=== PATIENT | male | born 1950 | race Caucasian/White ===

== ENCOUNTER 2020-09-04 19:04 | Emergency (ER) | payer OTHER ==
--- OUTSIDE RECORDS SUMMARY | 2020-09-04 19:09 | XMS REPORT | Continuity of Care Document ---
:1950 Author Organization [facility] t Address [address] [place] [address] Care Team Providers Name Role Phone Jax Hearn MD Primary Care Physician Dustin Wadsworth MD Attending Clinician Payers Payer Name Policy Type Policy Effective Date Expiration Date Sour ce Number AETNAAETNA [id number] 2019 [place] HMO,POS,EPO, 00:00:00 [place] [id number] 2018-Present HMO Problems Condition Condition Condition Status Onset Resolution Last Treating Co mments Source Name Details Category Date Date Treatment Clinician Date Postnasal Postnasal Problem Active [facility] drip drip for ENT Diplopia Diplopia Problem Active [facility] Polyp of Polyp of Problem Active [facility] nasal nasal for ENT cavity cavity Otalgia, Otalgia, Problem Active Cent[facility] bilateral bilateral for ENT Sinusitis Sinusitis Problem Active [facility] - Chronic - Chronic for ENT Nasal Nasal Problem Active Center airway airway for ENT obstructio obstructio n n Unspecifie Unspecifie Problem Active C enter d nasal d nasal for ENT polyp polyp Otitis Otitis Problem Active Center externa - externa - for ENT Acute Acute H60.339* H60.339* Eustachian Eustachian Problem Active C enter tube tube for ENT dysfunctio dysfunctio n, n, bilateral bilateral Allergic Allergic Problem Active Cente r rhinitis, rhinitis, for ENT seasonal seasonal Headache Headache Problem Active Cente r for ENT Chronic Chronic Problem Active Center maxillary maxillary for ENT sinusitis sinusitis Epidermal Epidermal Problem Active [facility] cyst cyst for ENT Cough Cough Problem Active Center for ENT Otitis Otitis Problem Active Center media - media - for ENT Chronic Chronic serous * serous * [place]achian Eustachian Problem Active C enter tube tube for ENT dysfunctio dysfunctio n * n * Obstructiv Obstructiv Problem Active C enter e sleep e sleep for ENT apnea apnea Acute Acute Problem Active Center pharyngiti pharyngiti fo r ENT s s Edema of Edema of Problem Active Cente r larynx larynx for ENT GERD GERD Problem Active Center for ENT Sinusitis Sinusitis Problem Active [facility] - Chronic - Chronic for ENT Chronic Chronic Problem Active Center maxillary maxillary for ENT sinusitis sinusitis Allergic Allergic Problem Active Cente r rhinitis rhinitis for EN T Swelling, Swelling, Problem Active [facility] mass, lump mass, lump fo r ENT in neck in neck Other Other Problem Active Center specified specified for ENT disorders disorders of of Eustachian Eustachian tube, tube, unspecifie unspecifie d ear d ear Chronic Chronic Problem Active Center laryngitis laryngitis fo r ENT (LPRD) (LPRD) Acute Acute Problem Active Center serous serous for ENT otitis otitis media, media, left ear left ear Conductive Conductive Problem Active C enter hearing hearing for ENT loss, loss, unilateral unilateral , left ear , left ear with with restricted restricted hearing on hearing on the the contralate contralate ral side ral side Allergies, Adverse Reactions, Alerts This patient has no known allergies or adverse reactions. Family History Family Member Diagnosis Comments Start Date Stop Date Source Natural father No Known Problems Lexx Yanez Natural mother No Known Problems Lexx Yanez Social History Social Habit Start Date Stop Date Quantity Comments Source Sex Assigned At [facility] Tobacco use and 2017-10-23 2017-10-[address] [facility] - exposure 00:00:00 00:00:00 [facility] Alcohol intake 2017-10-23 2017-10-23 Current [facility] es - 00:00:00 00:00:00 non-drinker of Medical nter alcohol (finding) Smoking Status Start Date Stop Date Source Never smoker [facility] Medications Ordered Filled Start Stop Current Ordering Indication Dosage Frequency Signature Comments Components Source Medication Medication Date Date Medication? Clinician (SIG) Name Name budesonide- 2020-0 Yes Take by Lexx terrileonidas formoteroL 6-04 mouth. [facility] (Symbicort) 08:49: st 160-4.5 13 mcg/actuati on inhaler itraconazol 2019-0 Yes itraconazo [place] e 6-04 le 100 mg [facility] (SPORANOX) 08:49: capsule st 100 mg 13 capsule montelukast 2019-0 Yes montelukas [place] (SINGULAIR) 604 t 10 mg Metho di 10 mg 08:49: tablet st tablet 13 omeprazole 2019-0 Yes omeprazole [place] (PriLOSEC) 04 40 mg [facility] 40 MG 08:49: capsule,de st capsule 13 layed release atorvastati 2019-0 Yes 20mg QD Take 20 mg Davon n (LIPITOR) -04 by mouth Meth melanie 20 mg 08:49: daily. st tablet 13 Default OP ins clopidogreL 2019-0 Yes 75mg QD Take 75 mg [place] (PLAVIX) 75 -04 by mouth Meth melanie mg tablet 08:49: daily. st 13 Omeprazole Omeprazole 2018-0 Yes Diogo Glover 1 capsule Center 3-08 for ENT 00:00: 00 budesonide- 2018-0 Yes 2{puff} Q.5D Inhale [address] formoterol 2-10 puffs by [facility] - (SYMBICORT) 15:00: mouth via M edical 160-4.5 05 inhaler 2 Center mcg/actuati (two) on inhaler times daily. OMEPRAZOLE 2017-0 Yes Take by [facility] ORAL 2-10 mouth. [facility] - 15:00: Medical 05 Center montelukast 2017-0 Yes 10mg QD Take [address] (SINGULAIR) 2-10 by mouth Luke s - 10 mg 15:00: nightly. Medical tablet 05 Center Vital Signs Vital Name Observation Time Observation Value Comments Source Body height 2020-02-15 08:39:00 182.9 cm Davon Yanez Body weight 2020-02-15 08:39:00 79.379 kg Davon Yanez BMI 2020-02-15 08:39:00 23.73 kg/m2 Davon Yanez Procedures Procedure Date / Time Performing Clinician Source Performed NE ARTHROCENTESIS 2020-02-29 09:45:00 Amish Wadsworth ethodist ASPIR&/INJ MAJOR JT/BURSA W/O US NE ARTHROCENTESIS 2020-02-15 09:45:00 Amish Wadsworth ethodist ASPIR&/INJ MAJOR JT/BURSA W/O US XR SHOULDER 2+ VW RIGHT 2020-02-15 08:50:25 Amish Wadsworth [place] Plan of Care Planned Activity Planned Date Details Comments Source Future Scheduled 2020-05-14 INFLUENZA VACCINE (#1) [facility] Test 00:00:00 [code = INFLUENZA Medical Ce nter VACCINE (#1)] Future Scheduled 2020-04-13 INFLU[place]ZA VACCINE [place] [facility] Test 00:00:00 [code = INFLUENZA VACCINE] Future Scheduled 2014 65+ PNEUMOCOCCAL [place] [facility] Test 00:00:00 VACCINE (1 of 1 - PPSV23) [code = 65+ PNEUMOCOCCAL VACCINE (1 of 1 - PPSV23)] Future Scheduled 2014 PNEUMOCOCCAL 65+ Y[facility] - Test 00:00:00 (1 of 1 - Medical Center [id number] PCV13) [code = PNEUMOCOCCAL 65+ YRS (1 of 1 - [id number] PCV13)] Future Scheduled 1999 [place]OSCOPY SCREENING [place] [facility] Test 00:00:00 [code = COLONOSCOPY SCREENING] Future Scheduled 1999 SHINGLES VACCINES (#1) [place] [facility] Test 00:00:00 [code = SHINGLES VACCINES (#1)] Future Scheduled 1965 COVID-19 VACCINE (#1) [place] [facility] Test 00:00:00 [code = COVID-19 VACCINE (#1)] Future Scheduled [address] [facility] - Test 00:00:00 malignant neoplasm of Medica l Center colon (procedure) [code = 680575661] Encounters Start End Encounter Admission Attending Care Care Encounter Source Date/Time Date/Time Type Type Clinicians Facility Department ID 2020-03-14 2020-03-14 Outpatient [facility] [id number] 274 [place] 00:00:00 00:00:00 AMISH [address] 2020-02-29 2020-02-29 Outpatient [facility] [id number] [place] 00:00:00 00:00:00 AMISH 384 Method i 2020-02-15 2020-02-15 Outpatient [facility] [id number] 499 [place] 00:00:00 00:00:00 042 Method i 2020-02-15 2020-02-15 Outpatient BHARGAVI [facility] [id number] [place] 00:00:00 00:00:00 AMISH 745 Method i 2018-11-18 2018-11-18 Outpatient [facility] [id number] Center 10:59:00 10:59:00 [facility] 2018-08-03 2018-08-03 Outpatient [facility] [id number] Center 14:00:00 14:00:00 [facility] 2018-07-12 2018-07-12 Outpatient [facility] [id number] Center 10:30:00 10:30:00 [facility] 2018 2018 Outpatient [facility] [id number] Center 13:05:00 13:05:00 [facility] 2018-04-13 2018-04-13 Outpatient [facility] [id number] Center 09:26:00 09:26:00 [facility] 2018-02-23 2018-02-23 Outpatient [facility] [id number] Center 13:37:00 13:37:00 [facility] Results Test Description Test Time Test Comments Results Result Sour e Comments Large Joint 2020-02-12 [facility] 8 02/29/2020 2:03 M ethodist shoulder, R 09:45:00 PMLarge Joint subacromial Arthrocentesis: bursa shoulder, R subacromial bursaConsent given by: patientSupporting DocumentationIndicati ons: pain Procedure DetailsUltrasound guided: noPlatelet Rich Plasma Used: no PRP UsedLocation: shoulder - R subacromial bursa Right side:Needle size: 25 GApproach: anteriorRight shoulder medications administered: 1 mL lidocaine 10 mg/mL (1 %); 6 mg betamethasone acetate & sodium phosphate 6 mg/mLPatient tolerance: patient tolerated the procedure well with no immediate complications Large Joint Amish Wadsworth MD Lexx stoleonidas Arthrocentesis: 4 02/15/2020 1:52 Me thodist shoulder, R 09:45:00 PMLarge Joint subacromial Arthrocentesis: bursa shoulder, R subacromial bursaConsent given by: patientSupporting DocumentationIndicati ons: pain Procedure DetailsUltrasound guided: noPlatelet Rich Plasma Used: no PRP UsedLocation: shoulder - R subacromial bursa Right side:Needle size: 25 GApproach: anteriorRight shoulder medications administered: 1 mL lidocaine 10 mg/mL (1 %); 6 mg betamethasone acetate & sodium phosphate 6 mg/mLPatient tolerance: patient tolerated the procedure well with no immediate complications FL, ESOPHAGUS 2018-06-15 Reason for FINAL REPORT PATIENT 1 Exam:->chronic ID: [id number] EXAM: 14:36:00 laryngitis Esophagram was performed with sodium carbonate and barium. INDICATION: 68-year-old man with chronic laryngitis. COMPARISON: None. FINDINGS:Swallow: The swallowing mechanism was grossly normal. The esophagus was normally distensible and the mucosa was normal in appearance. Esophageal motility was within normal limits. Gastroesophageal junction: No evidence of hiatal hernia. Reflux: No evidence of reflux. The visualized portions of the stomach and proximal small bowel are unremarkable. Fluoroscopy time: 61 secondsNumber of images: 18 IMPRESSION:Normal esophagram. Signed: Etta [place]os MDReport Verified Date/Time: 07/13/2018 14:36:23 Reading Location: [address] Radiology Reading Room , CHEST, 2 2017-10-14 Reason for FINAL REPORT PATIENT VIEWS 0 exam:->COUGHSh ID: [id number] 15:51:00 ould this be TECHNIQUE: 2 views of performed at the chest. the COMPARISON: 12/12/2011 bedside?->No FINDINGS: The cardiac silhouette is within normal limits. Mediastinum is unremarkable. Lungs appear hyperexpanded, otherwise clear. Osseous structures appear unremarkable. Soft tissues appear unremarkable. IMPRESSION: No acute cardiopulmonary disease. Signed: Gerry Garciaort Verified Date/Time: 10/23/2017 15:51:04 Reading Location: [facility] B1 C013T Transitional Reading Room
--- OUTSIDE RECORDS SUMMARY | 2020-09-04 19:09 | XMS REPORT | Clinical Summary ---
:1950 Author Organization [facility] Address [address] [place] [address] Care Team Providers Name Role Phone Ric Hearn MD Primary Care Provider Allergies No Known Active Allergies Medications Medication Sig Dispensed Refills Start Date End Date Status budesonide-formotero Take by mouth. 0 Active L (Symbicort) 160-4.5 mcg/actuation inhaler itraconazole itraconazole 100 mg 0 Active (SPORANOX) 100 mg capsule capsule montelukast montelukast 10 mg 0 Active (SINGULAIR) 10 mg tablet tablet omeprazole omeprazole 40 mg 0 Ac tive (PriLOSEC) 40 MG capsule,delayed capsule release atorvastatin Take 20 mg by mouth 0 Active (LIPITOR) 20 mg daily. Default OP tablet ins clopidogreL (PLAVIX) Take 75 mg by mouth 0 Active 75 mg tablet daily. Active Problems No known active problems Encounters Date Type Specialty Care Team Description 03/14/2020 Office Visit Orthopedic Surgery Clif Wadsworth Rota tor cuff tendinitis, right (Primary Dx); Acute pain of r ight shoulder 03/14/2020 Travel 02/29/2020 Office Visit Orthopedic Surgery Clif Wadsworth Acut e pain of right shoulder (Primary Dx); Rotator cuff lev gaxiolainimeek, right 02/29/2020 Travel 02/15/2020 Office Visit Orthopedic Surgery Clif Wadsworth Acut e pain of right shoulder (Primary Dx); Rotator kali aguilar, right 02/15/2020 Travel 02/09/2020 Travel after 09/04/2019 Surgical History Surgery Date Site/Laterality Comments SINUS SURGERY HERNIA REPAIR Medical History Medical History Date Comments COPD (chronic obstructive pulmonary disease) (HCC) Hyperlipidemia GERD (gastroesophageal reflux disease) Family History Medical History Relation Name Comments No Known Problems Father No Known Problems Mother Relation Name Status Comments Father Mother Social History Tobacco Use Types Packs/Day Years Used Date Never Smoker Sex Assigned at Date Recorded Not on file Last Filed Vital Signs Vital Sign Reading Time Taken Comments Blood Pressure - - Pulse - - Temperature - - Respiratory Rate - - Oxygen Saturation - - Inhaled Oxygen Concentration - - Weight 79.4 kg (175 lb) 02/15/2020 8:39 AM CDT Height 182.9 cm (6') 02/15/2020 8:39 AM CDT Body Mass Index 23.73 02/15/2020 8:39 AM CDT Plan of Treatment Health Maintenance Due Date Last Done Comments COVID-19 VACCINE (#1) 1965 COLONOSCOPY SCREENING 1999 SHINGLES VACCINES (#1) 1999 65+ PNEUMOCOCCAL VACCINE (1 of 1 - PPSV23) 2014 INFLUENZA VACCINE 04/13/2020 Procedures Procedure Name Priority Date/Time Associated Comments Diagnosis VT ARTHROCENTESIS Routine 02/29/2020 9:45 Acute pain of Resul ts for this ASPIR&/INJ MAJOR AM CDT right shoulder procedure are in JT/BURSA W/O US Rotator cuff the results tendinitis, right section. VT ARTHROCENTESIS Routine 02/15/2020 9:45 Acute pain of Resul ts for this ASPIR&/INJ MAJOR AM CDT right shoulder procedure are in JT/BURSA W/O US Rotator cuff the results tendinitis, right section. XR SHOULDER 2+ VW RIGHT Routine 02/15/2020 8:50 Acute pain of Results for this AM CDT right shoulder procedure are in the results section. after 09/04/2019 Results Large Joint Arthrocentesis: shoulder, R subacromial bursa (02/29/2020 9:45 AM CDT) Narrative Performed At Clif Wadsworth MD 02/29/2020 2 :03 PM Large Joint Arthrocentesis: shoulder, R subacromial bursa Consent given by: patient Supporting Documentation Indications: pain Procedure Details Ultrasound guided: no Platelet Rich Plasma Used: no PRP Used Location: shoulder - R subacromial bursa Right side: Needle size: 25 G Approach: anterior Right shoulder medications administered: 1 mL lidocain e 10 mg/mL (1 %); 6 mg betamethasone acetate & sodium phosph ate 6 mg/mL Patient tolerance: patient tolerated the procedure wel l with no immediate complications Large Joint Arthrocentesis: shoulder, R subacromial bursa (02/15/2020 9:45 AM CDT) Narrative Performed At Clif Wadsworth MD 02/15/2020 1: 52 PM Large Joint Arthrocentesis: shoulder, R subacromial bursa Consent given by: patient Supporting Documentation Indications: pain Procedure Details Ultrasound guided: no Platelet Rich Plasma Used: no PRP Used Location: shoulder - R subacromial bursa Right side: Needle size: 25 G Approach: anterior Right shoulder medications administered: 1 mL lidocain e 10 mg/mL (1 %); 6 mg betamethasone acetate & sodium phosph ate 6 mg/mL Patient tolerance: patient tolerated the procedure wel l with no immediate complications XR Shoulder 2+ Vw Right (02/15/2020 8:50 AM CDT) Specimen Narrative Performed At This result has an attachment that is no t available. Internal and external rotation AP and outlet view x-rays of the right [facility] shoulder are normal. There is no joint line narrowin g, no spurring and no soft tissue calcification. 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
--- OUTSIDE RECORDS SUMMARY | 2020-09-04 19:09 | XMS REPORT | Clinical Summary ---
:1950 Author Organization [facility] Address [address] [place] [address] Care Team Providers Name Role Phone Jax Hearn Primary Care Provider Allergies No Known Allergies Medications Medication Sig Dispensed Refills Start Date End Date Status budesonide-formoterol Inhale 2 puffs by 0 Active (SYMBICORT) 160-4.5 mouth via inhaler mcg/actuation inhaler 2 (two) times daily. OMEPRAZOLE ORAL Take by mouth. 0 Active montelukast Take 10 mg by 0 Acti ve (SINGULAIR) 10 mg mouth nightly. tablet Active Problems Not on file Social History Tobacco Use Types Packs/Day Years Used Date Never Smoker Smokeless Tobacco: Never Used Tobacco Cessation: Counseling Given: No Alcohol Use Drinks/Week oz/Week Comments No Sex Assigned at Date Recorded Not on file Last Filed Vital Signs Not on file Plan of Treatment Health Maintenance Due Date Last Done Comments COLON CANCER SCREENING COLONOSCOPY 1950 PNEUMOCOCCAL 65+ YRS (1 of 1 - [id number] PCV13) 2014 INFLUENZA VACCINE (#1) 2020 Results Not on fileafter 09/04/2019 Insurance Payer Benefit Plan / Subscriber ID Effective Dates Phone Addre ss Type Group PHCS - PRIVATE [employer]CS PPO/POS [id number] 2017-Present PPO [facility]
[2020-09-04] MEDS ORDERED: ASPIRIN 81 MG CHEWABLE TABLET ONE (22:05)
[2020-09-04] MEDS ORDERED: NA CHLORIDE 0.9% 1,000 ML ONE (22:06)
[2020-09-04] MEDS ORDERED: FENTANYL CITR 100 MCG/2 ML ONE (22:06)
[2020-09-04] MEDS ORDERED: CLOPIDOGREL 75 MG TABLET ONE (22:06)
[2020-09-04 22:35] LABS: Absolute Lymphocytes (CBC) 0.5 K/uL (0.7-4.9); Basophils % 0.4 % (0-1.3); Hematocrit 35.2 % (39.6-49.0); Lymphocytes % 13.1 % (15.3-44.8); MPV 7.8 fL (7.6-11.3); RBC Red Blood Cell Count 3.85 M/uL (4.33-5.43)
[2020-09-04 22:43] LABS: BUN Blood Urea Nitrogen 15 mg/dL (7-18); Bicarbonate 28 mmol/L (21-32); Glucose Level 107 mg/dL (74-106); Potassium 3.4 mmol/L (3.5-5.1); Sodium Level 142 mmol/L (136-145)
--- NOTE | 2020-09-04 22:48 | ER ---
Nurse's Notes [facility] Name: Andrea Weiss Age: 70 yrs Sex: Male : 1950 Arrival Date: 09/04/2020 Time: 19:09 Bed 19 Private MD: Diagnosis: SARS-associated coronavirus as the cause of diseases classified elsewhere;Fever, unspecified Presentation: 09/04 20:03 Chief complaint: Patient states: Covid positive 08/27. Fever and SOB now. Had N/V/D, ll1 but now has resolved. States he thought he was getting better, but fever spiked again today. 20:05 Coronavirus screen: Client denies travel out of the [place] in the last 14 days. cough ll1 unrelated to allergies, fatigue, fever, Client presents with at least one sign or symptom that may indicate coronavirus-19. Standard/surgical mask placed on the client. Client reports previous positive COVID test result. Ebola Screen: Patient denies travel to an Ebola-affected area in the 21 days before illness onset. Initial Sepsis Screen: Does the patient meet any 2 criteria? No. Patient's initial sepsis screen is negative. Does the patient have a suspected source of infection? Yes: Productive cough/pneumonia. Risk Assessment: Do you want to hurt yourself or someone else? Patient reports no desire to harm self or others. Onset of symptoms was August 26, 2020. 20:05 Method Of Arrival: Ambulatory ll1 20:05 Acuity: ANGELIC 3 ll1 Historical: - Allergies: 20:03 No Known Allergies; ll1 - PMHx: 20:03 Asthma; ll1 - PSHx: 20:03 sinus surgeries x 4; ll1 - Immunization history:: Flu vaccine is up to date. - Social history:: Smoking status: Patient denies any tobacco usage or history of. Screenin:20 Abuse screen: Denies threats or abuse. Nutritional screening: No deficits noted. ll2 Tuberculosis screening: No symptoms or risk factors identified. Fall Risk None identified. Assessment: 19:20 General: Appears in no apparent distress. Behavior is calm, cooperative, appropriate ll2 for age. Pain: Denies pain. Neuro: Level of Consciousness is awake, alert, obeys commands, Oriented to person, place, time, situation. Cardiovascular: Patient's skin is warm and dry. Respiratory: Airway is patent Respiratory effort is even, unlabored, Respiratory pattern is regular, symmetrical, Breath sounds are clear. GI: No signs and/or symptoms were reported involving the gastrointestinal system. : No signs and/or symptoms were reported regarding the genitourinary system. EENT: No signs and/or symptoms were reported regarding the EENT system. Derm: Skin is intact, Skin is dry, Skin is pink, warm \T\ dry. Musculoskeletal: Circulation, motion, and sensation intact. Range of motion:. 20:30 Reassessment: Patient and/or family updated on plan of care and expected duration. Pain ll2 level reassessed. Patient is alert, oriented x 3, equal unlabored respirations, skin warm/dry/pink. son at bedside, pt denies pain at this time. 21:30 Reassessment: Patient and/or family updated on plan of care and expected duration. Pain ll2 level reassessed. Patient is alert, oriented x 3, equal unlabored respirations, skin warm/dry/pink. pt resting comfortably in bed. 22:30 Reassessment: Patient and/or family updated on plan of care and expected duration. Pain ll2 level reassessed. Patient is alert, oriented x 3, equal unlabored respirations, skin warm/dry/pink. Vital Signs: 19:22 BP 144 / 79; Pulse 75; Resp 18; Temp 98; Pulse Ox 99% on R/A; ll2 20:05 BP 115 / 74; Pulse 60; Resp 18; Temp 98.0; Pulse Ox 100% ; Weight 79.38 kg; Height 6 ll1 ft. 0 in. (182.88 cm); Pain 0/10; 20:15 BP 134 / 87; Pulse 75; Resp 16; Pulse Ox 99% on R/A; ll2 21:15 BP 110 / 75; Pulse 55; Resp 18; Pulse Ox 99% on R/A; ll2 22:15 BP 148 / 86; Pulse 50; Resp 17; Pulse Ox 99% on R/A; ll2 23:15 BP 137 / 89; Pulse 50; Resp 18; Temp 98; Pulse Ox 100% on R/A; ll2 20:05 Body Mass Index 23.73 (79.38 kg, 182.88 cm) ll1 ED Course: 19:09 Patient arrived in ED. rg4 19:20 Patient has correct armband on for positive identification. Placed in gown. Bed in low ll2 position. Call light in reach. Side rails up X 1. Adult w/ patient. Pulse ox on. NIBP on. 19:20 No provider procedures requiring assistance completed. Inserted saline lock: 22 gauge ll2 in right antecubital area, using aseptic technique. Blood collected. 20:02 Arm band placed on Patient placed in an exam room, on a stretcher. ll1 20:06 Triage completed. ll1 20:44 Kenzie Palmer FNP-C is PHCP. snw 20:44 Reba Contreras MD is Attending Physician. snw 20:53 Radha Augustin, RO is Primary Nurse. ll2 21:50 Chest Single View XRAY In Process Unspecified. EDMS 23:16 IV discontinued, intact, bleeding controlled, No redness/swelling at site. Pressure ll2 dressing applied. Administered Medications: 22:00 Drug: Aspirin Chewable Tablet 81 mg Route: PO; ll2 23:17 Follow up: Response: No adverse reaction ll2 22:00 Drug: PlaVIX 75 mg Route: PO; ll2 23:17 Follow up: Response: No adverse reaction ll2 22:15 Drug: NS 0.9% 1000 ml Route: IV; Rate: 1 bolus; Site: right antecubital; ll2 23:17 Follow up: Response: No adverse reaction; IV Status: Completed infusion; IV Intake: ll2 1000ml 22:20 Drug: fentaNYL (PF) 25 mcg Route: IVP; Site: right antecubital; ll2 23:17 Follow up: Response: No adverse reaction ll2 Intake: 23:17 IV: 1000ml; Total: 1000ml. ll2 Outcome: 22:48 Discharge ordered by . snw 23:16 Discharged to home ambulatory. ll2 23:16 Condition: stable 23:16 Discharge instructions given to patient, Instructed on discharge instructions, follow up and referral plans. Demonstrated understanding of instructions, follow-up care. 23:17 Patient left the ED. ll2 Signatures: Dispatcher [employer] EDMS Kenzie Palmer FNP-C FITTING ROOM OPERATOR-Csnw Lorelei Titus rg4 Radha Augustin, RN RN ll2 Scarlett Marin RN RN ll1
--- NOTE | 2020-09-04 22:48 | EDPHYS ---
Physician Documentation [facility] Name: Andrea Weiss Age: 70 yrs Sex: Male : 1950 Arrival Date: 09/04/2020 Time: 19:09 Bed 19 Private MD: ED Physician Reba Contreras HPI: 09/04 21:32 This 70 yrs old Male presents to ER via Ambulatory with complaints of Fever, snw COVID+. 21:32 The patient reports fever, that was measured at 102 degrees Fahrenheit. Onset: The snw symptoms/episode began/occurred recurred this am. Associated signs and symptoms: Pertinent positives: cough, decreased appetite, fatigue, malaise, weight loss. Severity of symptoms: At their worst the symptoms were moderate. The patient has experienced a previous episode. The patient has been recently seen by a physician: with similar presenting complaints, dx with CoVid on the , felt a little better and then today awoke with fever to 102. SpO2 100% on Room air. Historical: - Allergies: 20:03 No Known Allergies; ll1 - PMHx: 20:03 Asthma; ll1 - PSHx: 20:03 sinus surgeries x 4; ll1 - Immunization history:: Flu vaccine is up to date. - Social history:: Smoking status: Patient denies any tobacco usage or history of. ROS: 21:31 Eyes: Negative for injury, pain, redness, and discharge, ENT: Negative for injury, snw pain, and discharge, Neck: Negative for injury, pain, and swelling, Cardiovascular: Negative for chest pain, palpitations, and edema, Abdomen/GI: Negative for abdominal pain, nausea, vomiting, diarrhea, and constipation, Back: Negative for injury and pain, : Negative for injury, bleeding, discharge, and swelling, MS/Extremity: Negative for injury and deformity, Skin: Negative for injury, rash, and discoloration, Neuro: Negative for headache, weakness, numbness, tingling, and seizure. 21:31 Constitutional: Positive for body aches, fatigue, fever, malaise, poor PO intake, weight loss. 21:31 Respiratory: Positive for cough, shortness of breath, on exertion. Exam: 21:30 Constitutional: This is a well developed, well nourished patient who is awake, alert, snw and in no acute distress. listless Head/Face: Normocephalic, atraumatic. Eyes: Pupils equal round and reactive to light, extra-ocular motions intact. Lids and lashes normal. Conjunctiva and sclera are non-icteric and not injected. Cornea within normal limits. Periorbital areas with no swelling, redness, or edema. ENT: Nares patent. No nasal discharge, no septal abnormalities noted. Tympanic membranes are normal and external auditory canals are clear. Oropharynx with no redness, swelling, or masses, exudates, or evidence of obstruction, uvula midline. Mucous membranes moist. Neck: Trachea midline, no thyromegaly or masses palpated, and no cervical lymphadenopathy. Supple, full range of motion without nuchal rigidity, or vertebral point tenderness. No Meningismus. Chest/axilla: Normal chest wall appearance and motion. Nontender with no deformity. No lesions are appreciated. Cardiovascular: Regular rate and rhythm with a normal S1 and S2. No gallops, murmurs, or rubs. Normal PMI, no JVD. No pulse deficits. 21:30 Abdomen/GI: Soft, non-tender, with normal bowel sounds. No distension or tympany. No guarding or rebound. No evidence of tenderness throughout. Back: No spinal tenderness. No costovertebral tenderness. Full range of motion. Skin: Warm, dry with normal turgor. Normal color with no rashes, no lesions, and no evidence of cellulitis. MS/ Extremity: Pulses equal, no cyanosis. Neurovascular intact. Full, normal range of motion. Neuro: Awake and alert, GCS 15, oriented to person, place, time, and situation. Cranial nerves II-XII grossly intact. Motor strength 5/5 in all extremities. Sensory grossly intact. Cerebellar exam normal. Normal gait. Psych: Awake, alert, with orientation to person, place and time. Behavior, mood, and affect are within normal limits. 21:30 Respiratory: the patient does not display signs of respiratory distress, Respirations: shallow respirations, Breath sounds: are clear throughout. Vital Signs: 19:22 BP 144 / 79; Pulse 75; Resp 18; Temp 98; Pulse Ox 99% on R/A; ll2 20:05 BP 115 / 74; Pulse 60; Resp 18; Temp 98.0; Pulse Ox 100% ; Weight 79.38 kg; Height 6 ll1 ft. 0 in. (182.88 cm); Pain 0/10; 20:15 BP 134 / 87; Pulse 75; Resp 16; Pulse Ox 99% on R/A; ll2 21:15 BP 110 / 75; Pulse 55; Resp 18; Pulse Ox 99% on R/A; ll2 22:15 BP 148 / 86; Pulse 50; Resp 17; Pulse Ox 99% on R/A; ll2 23:15 BP 137 / 89; Pulse 50; Resp 18; Temp 98; Pulse Ox 100% on R/A; ll2 20:05 Body Mass Index 23.73 (79.38 kg, 182.88 cm) ll1 MDM: 20:46 Patient medically screened. snw 22:51 Data reviewed: vital signs, nurses notes. Data interpreted: Pulse oximetry: on room air snw is 100 %. Interpretation: normal. Counseling: I had a detailed discussion with the patient and/or guardian regarding: the historical points, exam findings, and any diagnostic results supporting the discharge/admit diagnosis, lab results, radiology results, the need for outpatient follow up, to return to the emergency department if symptoms worsen or persist or if there are any questions or concerns that arise at home. Special discussion: Based on the history and exam findings, there is no indication for further emergent testing or inpatient evaluation. I discussed with the patient/guardian the need to see the primary care provider for further evaluation of the symptoms. 09/04 21:28 Order name: CBC with Diff; Complete Time: 22:38 snw 09/04 21:28 Order name: Chem 7; Complete Time: 22:46 snw 09/04 21:28 Order name: Chest Single View XRAY snw Administered Medications: 22:00 Drug: Aspirin Chewable Tablet 81 mg Route: PO; ll2 23:17 Follow up: Response: No adverse reaction ll2 22:00 Drug: PlaVIX 75 mg Route: PO; ll2 23:17 Follow up: Response: No adverse reaction ll2 22:15 Drug: NS 0.9% 1000 ml Route: IV; Rate: 1 bolus; Site: right antecubital; ll2 23:17 Follow up: Response: No adverse reaction; IV Status: Completed infusion; IV Intake: ll2 1000ml 22:20 Drug: fentaNYL (PF) 25 mcg Route: IVP; Site: right antecubital; ll2 23:17 Follow up: Response: No adverse reaction ll2 Disposition: 23:29 Co-signature as Attending Physician, Reba Contreras MD. ma2 Disposition: 09/04/20 22:48 Discharged to Home. Impression: SARS-associated coronavirus as the cause of diseases classified elsewhere, Fever, unspecified. - Condition is Stable. - Discharge Instructions: Fever, Adult, Viral Respiratory Infection, Aspirin and Your Heart, Rehydration, Elderly. - Medication Reconciliation Form, Thank You Letter, Antibiotic Education, Prescription Opioid Use form. - Follow up: Emergency Department; When: As needed; Reason: Worsening of condition. Follow up: Private Physician; When: 2 - 3 days; Reason: Recheck today's complaints, Continuance of care, Re-evaluation by your physician. Signatures: Dispatcher [employer] EDMS Kenzie Palmer, [employer] FIRST ASSISTANT-Reba Yates MD MD ma2 Radha Augustin RN RN ll2 Scarlett Marin RN RN ll1 Corrections: (The following items were deleted from the chart) 23:17 22:48 09/04/2020 22:48 Discharged to Home. Impression: SARS-associated coronavirus as ll2 the cause of diseases classified elsewhere; Fever, unspecified. Condition is Stable. Forms are Medication Reconciliation Form, Thank You Letter, Antibiotic Education, Prescription Opioid Use. Follow up: Emergency Department; When: As needed; Reason: Worsening of condition. Follow up: Private Physician; When: 2 - 3 days; Reason: Recheck today's complaints, Continuance of care, Re-evaluation by your physician. snw
[2020-09-04 23:28] VITALS: BP 137/89; TEMP 98; O2SAT 100
--- NOTE | 2020-09-05 08:32 | RAD REPORT ---
EXAM DESCRIPTION: Sigrid Single View09/04/2020 9:50 pm CLINICAL HISTORY: Cough COMPARISON: 2016 FINDINGS: The lungs are mildly hazy. Heart is normal size. Lungs are hyperaerated IMPRESSION: The lungs are mildly hazy. This probably is secondary to overlying soft tissue. Mild inf iltrates can also have this appearance. If clinically indicated further evaluation with PA and latera l chest series could be obtained
== END 2020-09-04 23:17 | disposition home or self-care (01) ==
LOC: ER 19:04
DX: U07.1 COVID-19 (principal); R05 Cough
CPT/HCPCS: 96361; 85025; 80048; 36415; 71045; 96374; 99284; J3010; J7030

== ENCOUNTER 2022-02-10 07:05 | Day surgery (SDC) | payer BC ==
--- NOTE | 2022-01-30 15:31 | RAD REPORT ---
EXAM DESCRIPTION: RAD - Chest Pa And Lat (2 Views) - 01/30/2022 3:20 pm CLINICAL HISTORY: Pre op pending urolift COMPARISON: Portable chest 09/04/2020, two view chest 08/10/2016 TECHNIQUE: Frontal and lateral views of the chest were obtained. FINDINGS: The lungs are fibrotic with flattened diaphragm and increased retrosternal space. The fibr otic lung pattern is not clearly different from comparison. No superimposed failure, infiltrate or ma ss lesions seen. Trachea is midline. Heart size is normal and central vasculature is within normal limits. No pleur al effusion or pneumothorax seen. No acute bony finding noted. No aortic abnormality. IMPRESSION: COPD pattern not substantially different from comparison imaging. No acute cardiopulmonary finding.
[2022-01-30 15:34] LABS: Absolute Lymphocytes (CBC) 0.8 K/uL (0.7-4.9); MPV 7.9 fL (7.6-11.3); RBC Red Blood Cell Count 3.86 M/uL (4.33-5.43)
[2022-01-30 15:35] LABS: Protime INR 1.08
[2022-01-30 15:46] LABS: Potassium 4.4 mmol/L (3.5-5.1)
--- NOTE | 2022-02-02 11:31 | EKG ---
Test Date: 2022-01-30 Test Time: 15:00:43 Auto Repair Technician: JIN MEASUREMENT RESULTS: Intervals: Rate: 64 WI: 142 QRSD: 88 QT: 408 QTc: 420 Lynn: P: 48 WI: 142 QRS: 56 T: 54 INTERPRETIVE STATEMENTS: Normal sinus rhythm Normal ECG Compared to ECG 12/19/2013 10:07:27 Sinus bradycardia no longer present Electronically Signed On 02-02-22 11:24:05 CDT by Jewel Yanes
[2022-02-10] MEDS ORDERED: Ringers Lactate 1,000 ML IV ONE (07:46)
[2022-02-10] MEDS ORDERED: CEFAZOLIN 2 GM IN 0.9% NACL 2 GM/100 ML BAG IV ONE (08:00)
[2022-02-10] MEDS ORDERED: ACETAMINOPHEN 500 MG TAB ONE (08:24)
[2022-02-10] MEDS ORDERED: CELECOXIB 100 MG CAPSULE ONE (08:24)
[2022-02-10] MEDS ORDERED: propofoL 200 MG/20 ML VIAL IV ONE (08:28)
[2022-02-10] MEDS ORDERED: FENTANYL CITR 100 MCG/2 ML ONE (08:29)
[2022-02-10] MEDS ORDERED: LIDOCAINE 1% MPF 5 ML VIAL ONE (08:29)
[2022-02-10] MEDS ORDERED: MIDAZOLAM HCL 2 MG/2 ML INJ ONE (08:51)
[2022-02-10] MEDS ORDERED: PHENAZOPYRIDINE 100MG TAB PO ONE ×2 (09:07→11:02)
[2022-02-10] MEDS ORDERED: CODEINE 30MG/APAP 300MG TAB PO PRN (09:07)
[2022-02-10] MEDS ORDERED: EPHEDRINE SULF 50 MG/ML VIAL ONE (09:28)
[2022-02-10 10:38] VITALS: BP 124/76; TEMP 97.8; O2SAT 100
[2022-02-10] MEDS ORDERED: CODEINE 30MG/APAP 300MG TAB ONE (11:02)
--- NOTE | 2022-02-10 20:23 | OP ---
Surgeon: TAL DAILEY Preoperative Diagnosis: Benign prostatic hypertrophy with lower urinary tract obstruction and sympto matology. Postoperative Diagnoses: 1.Benign prostatic hypertrophy with lower urinary tract obstruction and symptomatology. 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 Principal Procedures: 1.Cystoscopy and urethral dilation over a wire. 2.UroLift with 6 implants placed, 4 on the left and 2 on the right. Indication For Procedure: Mr. Weiss is a 71-year-old gentleman who presented to Urology Clinic w ith bothersome lower urinary symptoms due to BPH. He was intolerant to alpha-reymundo therapy and ref ractory symptoms despite attempts at alpha-reymundo therapy. As a result, he underwent cystoscopic ev aluation, which revealed the presence of lateral lobar hypertrophy with a slight elevation of the med jose de jesus bar with no intravesical projection, and he was discussed to be a candidate for the UroLift and e lected that approach. Procedure In Detail: The patient was consented in the preoperative holding area before being transfe rred to the operative suite where general anesthesia was induced. He was given Ancef 2 g IV antimicr obial prophylaxis and Pneumoboots were provided for DVT prophylaxis. He was placed in the lithotomy position, padded and secured to the table appropriately. His genitalia were prepped using Hibiclens and he was draped in standard fashion. The case was then begun using the UroLift cystoscopy bridge t hat was [place] inserted via his urethra until within the bowl, just distal to the striated sphinct er, an area of annular stricture was noted posteriorly. The stricture did prohibit passage of the 20 [place] cystoscope, so I removed the UroLift bridge and instead switched it for a standard 22[place] rigid cystoscope. I then passed the cystoscope to the point of obstruction in the urethra and passed a Bentson guidewire via the urethra beyond the obstruction into his bladder. Over the wire, I then removed the cystoscope leaving the wire in place, and then dilated the strictured area to 24[place] s equentially from 20[place]. I then removed the [place] dilator and reinserted the [place] cystos cope over the wire and was able to navigate via the prostatic urethra this time into his bladder. I then decompressed the bladder of fluid and urine, and then removed the cystoscope. I then replaced the [place] UroLift bridge via the urethra and into the bladder. I surveyed the pr ostatic urethra again identifying the lateral lobar hypertrophy as well as a slight elevation of a me vera bar with no intravesical projection. The bridge was then replaced with UroLift delivery device, and the first treatment site was at the bladder neck approximately 2 cm distal to the bladder neck. The distal tip of the delivery device was angled laterally approximately 20 to 30 degrees to ramon s the lateral lobe anteriorly. The trigger was pulled, thereby deploying a needle containing the imp lant through the prostate. The needle was then retracted allowing one end of the implant to be deliv ered to the capsular surface of the prostate. The implant was then tensioned to assure capsular seat ing and removal of slack monofilament. The device was then angled back towards the midline and slowl y advanced properly, typically 3 to 4 mm, until cystoscopic verification of the monofilament being ce ntered in the delivery was noted. The urethral end piece was then affixed to the monofilament, there by tailoring the size of the implant. Excess filament was then severed. The device was then readvan josehp into the bladder. The delivery device was then replaced with another delivery device, and a natalie lar approach was taken in the right lateral lobe approximately 2 cm distal to the bladder neck. I th en replaced the delivery device with the cystoscope bridge and surveyed the anatomy created. With 2 implants placed in the bladder neck and already evident opening at the bladder neck, we then visualiz ed the area around the verumontanum. The lateral lobar hypertrophy there needed to be treated, so I replaced the cystoscope bridge with another UroLift delivery device and applied an implant at the lef t apical lateral tissue at the level of the verumontanum. This device was utilized as had been previ ously described, and once deployed, the device was readvanced into the bladder before being exchanged for another UroLift delivery device. A similar approach was taken in the right lateral lobe at the verumontanum. After 4 implants were placed, I then switched the delivery device for the cystoscope b ridge again and resurveyed the prostatic urethra. There was residual anterolateral overhang from the left lateral zone of the prostate. As a result, an additional UroLift delivery device was employed between the bladder neck and the verumontanum staple zone to elevate that tissue. Once this was done , I then switched back to the obturator and the bridge to resurvey the area. Since there was some re sidual anterolateral overhang right at the level of the bladder neck anterior to the staple placed in that location, an additional delivery device was utilized to place one last implant slightly anterio r to the tissue and the staple placed approximately 2 cm to the bladder neck location. Once this was placed, the bridge was then reinserted, and the channel was surveyed and noted to be patent from the verumontanum through to the bladder neck. As a result, no further implants were deemed appropriate or necessary, and I left his bladder full before placing a 16[place] silicone Mckeon catheter into his bladder with ease. Because he had a latex allergy, we were unable to find a non-latex catheter larg er than the 16[place]. Approximately 10 cc of sterile water was placed in the balloon, and the bladd er was decompressed with some light pink urine. The catheter was connected to a leg bag, and the pat ient was taken out of the lithotomy position. He was then awakened from general anesthesia, transfer red to a stretcher, and then transferred to the recovery room in good condition. Complications: None. Discharge Disposition: He will remove the catheter himself tomorrow morning at 7 a.m. and will be di scharged with a prescription for Bactrim Double Strength tablets twice daily for the next 5 days. Salmon bsequent followup may be established in approximately 1 month to review the interval assessment of hi s symptoms. MAGGY/MODL Voice ID: [id number] Report ID: [id number]
== END 2022-02-10 11:57 | disposition home or self-care (01) ==
LOC: OR 07:05
PROVIDERS: ATTEND Urology
PROC: 0T7D8DZ Dilation of Urethra with Intraluminal Device, Via Natural or Artificial Opening Endoscopic (ICD-10-PCS; principal; 2022-02-10 08:30)
DX: N40.1 Benign prostatic hyperplasia with lower urinary tract symptoms (principal); Z20.822 Contact with and (suspected) exposure to COVID-19; J45.909 Unspecified asthma, uncomplicated; K21.9 Gastro-esophageal reflux disease without esophagitis
CPT/HCPCS: 36415; 71046; 80048; 85025; 85610; 87086; 87088; 93005; J0690; J2250; J2704; J3010; J7120; U0003